=== PATIENT | male | born 1960 | race Caucasian/White ===

== ENCOUNTER 2020-10-11 09:12 | Day surgery (SDC) | payer OTHER ==
[~2020-10-11] VITALS: Ht 177.8 cm; Wt 70.2 kg
[2020-10-11 09:41] VITALS: BP 112/68
[2020-10-11] MEDS ORDERED: FENTANYL PF 100 MCG/2ML ONE (09:47)
[2020-10-11] MEDS ORDERED: NONE PER PT (09:47)
[2020-10-11] MEDS ORDERED: LACTATED RINGERS 1,000 ML IV SCH (10:00)
[2020-10-11] MEDS ORDERED: CHLORHEXIDINE 15 ML UDC PO ONE (10:00)
[2020-10-11] MEDS ORDERED: CHLORHEXIDINE 15 ML UDC ONE (10:08)
[2020-10-11] MEDS ORDERED: PROPOFOL 10 MG/ML, 20ML ONE (10:38)
[2020-10-11] MEDS ORDERED: GLYCOPYRROLATE 0.2MG/1ML, 5ML ONE (10:38)
[2020-10-11] MEDS ORDERED: CEFAZOLIN 1,000 MG ONE (10:38)
[2020-10-11] MEDS ORDERED: NEOSTIGMINE 1 MG/ML, 10ML ONE (10:38)
[2020-10-11] MEDS ORDERED: SUGAMMADEX 200 MG/2 ML IVPush ONE (10:38)
[2020-10-11] MEDS ORDERED: ROCURONIUM 10MG/ML,5ML ONE (10:38)
[2020-10-28] MEDS ORDERED: OXYC5SOL8 JT (16:29)
== END 2020-10-11 11:35 | disposition home or self-care (01) ==
LOC: OUT 09:12
PROVIDERS: ATTEND Internal Medicine Geriatric Medicine
DX: C15.3 Malignant neoplasm of upper third of esophagus (principal); K22.2 Esophageal obstruction; U07.1 COVID-19
CPT/HCPCS: 43259; J2704; J3010; J7120; U0003; U0005; J0690; J2710

== ENCOUNTER 2020-10-18 12:46 | Inpatient (IN) | payer OTHER ==
[~2020-10-18] VITALS: Ht 177.8 cm; Wt 67.5 kg
[~2020-10-18 12:46] MED LIST: NONE PER PT
[2020-10-18 13:50] LABS: MEAN CORPUSCULAR HEMOGLOBIN 31.6 pg (27.5-34.5); MEAN CORPUSCULAR HGB CONC 34.5 g/dL (33.2-36.2); MEAN PLATELET VOLUME 9.9 fL (7.4-10.4); PLATELET COUNT 116 x10^3/uL (130-400); RED BLOOD COUNT 4.69 x10^6/uL (4.38-5.82); RED CELL DISTRIBUTION WIDTH 13.5 % (9.4-14.8)
[2020-10-18 13:59] LABS: ALANINE AMINOTRANSFERASE 20 U/L (12-78); ALBUMIN 2.8 g/dL (3.4-5.0); ANION GAP 5 mmol/L (5-15); CALCIUM 8.4 mg/dL (8.5-10.1); CHLORIDE 98 mmol/L (98-107)
[2020-10-18 14:02] LABS: ALKALINE PHOSPHATASE 58 U/L (45-117); BILIRUBIN,TOTAL 0.7 mg/dL (0.2-1.0); CREATININE 0.86 mg/dL (0.7-1.3)
--- NOTE | 2020-10-18 14:11 | NUR ---
AT BEDSIDE FOR ED EVAL.
--- NOTE | 2020-10-18 14:15 | NUR ---
THIS IS A 60 YO M W/ C/O NAUSEA, COVID SX, PT HYPOXIC 87% RA. PT STATES THAT IS SCHEDULED FOR SURERY FOR FEEDING TUBE TOMORROW R/T ESOPHAGEAL TUMOR. PT FEBRILE, BORDERLINE HYPOTENSIVE. PT AWAKE AND ALERT, RESP EVEN AND UNLABORED, NADN. Addendum: 10/18/20 at 1557 by [email or web address] THIS IS A 60 YO M W/ C/O NAUSEA, COVID POSITIVE, PT HYPOXIC 87% RA. PT STATES THAT IS SCHEDULED FOR SURERY FOR FEEDING TUBE TOMORROW R/T ESOPHAGEAL TUMOR. PT FEBRILE, BORDERLINE HYPOTENSIVE. PT AWAKE AND ALERT, RESP EVEN AND UNLABORED, NADN.
[2020-10-18 14:19] LABS: BAND#(MANUAL) 0.25 x10^3/uL; BANDS%(MANUAL) 4 % (0-7); LYMPH#(MANUAL) 0.69 x10^3/uL (1-3.4); LYMPHS% (MANUAL) 11 % (22-44); MONOS#(MANUAL) 0.25 x10^3/uL (0.3-2.7); MONOS% (MANUAL) 4 % (2-9); SEGS% (MANUAL) 81 % (42-75)
[2020-10-18 14:20] LABS: <PLATELET ESTIMATE> DECREASED; <PLT MORPHOLOGY> NORMAL PLT MORPH
[2020-10-18 14:22] LABS: <RBC MORPHOLOGY> NORMAL
[2020-10-18] MEDS ORDERED: SODIUM CHLORIDE 0.9% 1,000ML IVBOLUS ONE ×2 (14:30→15:00)
[2020-10-18] MEDS ORDERED: SODIUM CHLORIDE FLUSH 10ML SYR IVF ONE (14:30)
[2020-10-18] MEDS ORDERED: CEFTRIAXONE 1,000 MG in DEXTROSE 5% 50 ML IVPB ONE (14:30)
[2020-10-18] MEDS ORDERED: AZITHROMYCIN 500 MG in SODIUM CHLORIDE 0.9% 250 ML IV ONE (14:30)
[2020-10-18] MEDS ORDERED: DEXAMETHASONE 4 MG/ML, 1ML IVPush ONE (14:30)
--- NOTE | 2020-10-18 14:30 | NUR ---
THIS RN UNABLE TO START PIV X2. TAMMY MOSES AT BEDSIDE FOR ATTEMPT.
[2020-10-18] MEDS ORDERED: DEXAMETHASONE 4 MG/ML, 5ML ONE (14:44)
[2020-10-18] MEDS ORDERED: ACETAMINOPHEN 500 MG TABLET ONE (14:45)
--- NOTE | 2020-10-18 14:50 | NUR ---
PT STATES UNABLE TO SWALLOW PILLS. TYLENOL HELD AT THIS TIME.
[2020-10-18] MEDS: ACETAMINOPHEN 500 MG TABLET PO ONE ×2 (14:53→15:42)
[2020-10-18] MEDS ORDERED: ACETAMINOPHEN 650 MG/20.3 ML UDC ONE (15:31)
--- NOTE | 2020-10-18 15:33 | NUR ---
PER DR.SULLIVAN BOURNE TO CHANGE TYLENOL 1000MG TABLET TO 1000MG LIQUID.
[2020-10-18] MEDS ORDERED: ONDANSETRON 2MG/ML, 2ML ONE (15:35)
--- NOTE | 2020-10-18 15:57 | NUR ---
PER LACTIC NOT INDICATED AT THIS TIME.
[2020-10-18] MEDS ORDERED: ONDANSETRON 2MG/ML, 2ML IVPush ONE (16:00)
--- NOTE | 2020-10-18 16:06 | NUR ---
FAMILY EDUCATED ON VISITOR POLICY.
[2020-10-18 17:24] VITALS: BP 98/55
[2020-10-18] MEDS ORDERED: DEXAMETHASONE 4 MG/ML, 1ML IVPush SCH (18:30)
[2020-10-18] MEDS ORDERED: REMDESIVIR 200 MG in SODIUM CHLORIDE 0.9% 250 ML IVPB ONE (18:30)
[2020-10-18] MEDS ORDERED: PHARMACY INSTRUCTION MC PRN (18:30)
[2020-10-18] MEDS ORDERED: ASCORBIC ACID 500 MG TABLET PO SCH (18:37)
[2020-10-18] MEDS ORDERED: ZINC SULFATE 220 MG CAPSULE PO SCH (18:38)
[2020-10-18] MEDS ORDERED: SODIUM CHLORIDE 0.9% 1,000 ML IV SCH (19:00)
[2020-10-18 20:06] VITALS: BP 99/52
[2020-10-18 22:46] LABS: MICROSCOPIC AUTO
[2020-10-19 00:09] VITALS: BP 87/65
[2020-10-19] MEDS: CEFTRIAXONE 1,000 MG in DEXTROSE 5% 50 ML IVPB SCH ×2 (03:12→16:09)
[2020-10-19 07:38] VITALS: BP 106/69
[2020-10-19 07:48] LABS: BASOPHILS % (AUTO) 0 % (0-1); EOSINOPHILS % (AUTO) 0 % (1-7); LYMPHOCYTES % (AUTO) 19 % (22-44); MEAN CORPUSCULAR HEMOGLOBIN 31.2 pg (27.5-34.5); MEAN PLATELET VOLUME 9.5 fL (7.4-10.4); MONOCYTES % (AUTO) 7 % (2-9); NEUTROPHILS % (AUTO) 74 % (42-75); PLATELET COUNT 124 x10^3/uL (130-400); RED BLOOD COUNT 4.24 x10^6/uL (4.38-5.82); RED CELL DISTRIBUTION WIDTH 13.7 % (9.4-14.8)
[2020-10-19 07:52] LABS: D-DIMER 0.49 ug/mlFEU (0.00-0.52)
[2020-10-19 07:56] LABS: ALBUMIN 2.3 g/dL (3.4-5.0); CALCIUM 8.1 mg/dL (8.5-10.1); CHLORIDE 108 mmol/L (98-107)
[2020-10-19 08:01] LABS: ALANINE AMINOTRANSFERASE 17 U/L (12-78); ALKALINE PHOSPHATASE 48 U/L (45-117); ANION GAP 7 mmol/L (5-15); BILIRUBIN,TOTAL 0.4 mg/dL (0.2-1.0); CREATININE 0.51 mg/dL (0.7-1.3); TOTAL PROTEIN 5.8 g/dL (6.4-8.2)
[2020-10-19] MEDS ORDERED: THIAMINE 100MG TABLET PO SCH (09:00)
[2020-10-19] MEDS ORDERED: CHOLECALCIFEROL 5,000u TAB PO SCH (09:00)
[2020-10-19] MEDS: DEXAMETHASONE 4 MG/ML, 1ML IVPush SCH (09:54)
[2020-10-19 13:19] VITALS: BP 101/60
[2020-10-19] MEDS ORDERED: ENOXAPARIN 40 MG/0.4 ML SQ SCH (13:30)
[2020-10-19] MEDS ORDERED: AZITHROMYCIN 500 MG in SODIUM CHLORIDE 0.9% 250 ML IV SCH (18:00)
[2020-10-19] MEDS ORDERED: REMDESIVIR 100 MG in SODIUM CHLORIDE 0.9% 250 ML IVPB SCH (18:30)
[2020-10-19 19:46] VITALS: BP 109/66
[2020-10-19] MEDS ORDERED: DIPHENHYDRAMINE 25 MG CAPSULE PO ONE (23:00)
[2020-10-19] MEDS ORDERED: ACETAMINOPHEN 325 MG TABLET PO ONE (23:00)
[2020-10-20 01:21] VITALS: BP 98/64
[2020-10-20] MEDS: CEFTRIAXONE 1,000 MG in DEXTROSE 5% 50 ML IVPB SCH (03:33)
[2020-10-20 06:31] LABS: CHLORIDE 110 mmol/L (98-107)
[2020-10-20 06:39] LABS: ALANINE AMINOTRANSFERASE 27 U/L (12-78); ALBUMIN 2.4 g/dL (3.4-5.0); ALKALINE PHOSPHATASE 48 U/L (45-117); ANION GAP 6 mmol/L (5-15); BILIRUBIN,TOTAL 0.4 mg/dL (0.2-1.0); CALCIUM 8.3 mg/dL (8.5-10.1); CREATININE 0.51 mg/dL (0.7-1.3); TOTAL PROTEIN 5.7 g/dL (6.4-8.2)
[2020-10-20 07:54] VITALS: BP 109/58
[2020-10-20] MEDS: DEXAMETHASONE 4 MG/ML, 1ML IVPush SCH (09:53)
[2020-10-20] MEDS ORDERED: CEFD300C37 PO (10:06)
[2020-10-20] MEDS ORDERED: AZIT250T PO (10:06)
== END 2020-10-20 11:53 | disposition home or self-care (01) | DRG 871 ==
LOC: ED 14:32 → 3N 14:49 → SUATTDRO 16:06
PROVIDERS: ADMIT Internal Medicine; ATTEND Family Medicine
PROC: XW033E5 Introduction of Remdesivir Anti-infective into Peripheral Vein, Percutaneous Approach, New Technology Group 5 (ICD-10-PCS; principal; 2020-10-18)
DX: A41.89 Other specified sepsis (principal); U07.1 COVID-19; J12.82 Pneumonia due to coronavirus disease 2019; J96.01 Acute respiratory failure with hypoxia; C15.9 Malignant neoplasm of esophagus, unspecified; E87.1 Hypo-osmolality and hyponatremia; D69.6 Thrombocytopenia, unspecified; E88.09 Other disorders of plasma-protein metabolism, not elsewhere classified; I10 Essential (primary) hypertension; K22.2 Esophageal obstruction; Z83.3 Family history of diabetes mellitus; Z85.01 Personal history of malignant neoplasm of esophagus; Z79.899 Other long term (current) drug therapy
CPT/HCPCS: 36415; 71045; 80053; 81001; 83690; 85025; 85379; 85384; 86140; 87040; 93005; 96365; 96368; 96375; G0378; J0456; J0696; J1100; J1650; J2405; J7030; J7050; Q0163

== ENCOUNTER 2020-10-27 07:51 | Outpatient (CLI) | payer OTHER ==
[~2020-10-27 07:51] MED LIST changes: +AZIT250T PO; +CEFD300C37 PO
[2020-10-28] MEDS ORDERED: IBUP100O26 JT (16:29)
[2020-10-28] MEDS ORDERED: ACET650S21 JT (16:29)
[2020-10-28] MEDS ORDERED: OXYC5SOL8 JT ×3 (16:29→20:02)
== END 2020-10-27 23:59 | disposition home or self-care (01) ==
LOC: ROC 07:51
PROVIDERS: ATTEND Radiology Radiation Oncology
DX: C15.5 Malignant neoplasm of lower third of esophagus (principal); K22.2 Esophageal obstruction; I10 Essential (primary) hypertension; E87.1 Hypo-osmolality and hyponatremia; Z79.899 Other long term (current) drug therapy
CPT/HCPCS: 99214; G0463

== ENCOUNTER 2020-10-28 12:55 | Day surgery (SDC) | payer OTHER ==
[~2020-10-28] VITALS: Ht 175.3 cm; Wt 69.4 kg
[2020-10-28] MEDS ORDERED: CHLORHEXIDINE 15 ML UDC ONE (13:29)
[2020-10-28 13:30] VITALS: BP 121/78
[2020-10-28] MEDS ORDERED: LACTATED RINGERS 1,000 ML IV SCH (14:00)
[2020-10-28] MEDS ORDERED: CHLORHEXIDINE 15 ML UDC PO ONE (14:00)
[2020-10-28] MEDS ORDERED: EPINEPHRINE 1 MG/ML, 1ML ONE (14:35)
[2020-10-28] MEDS ORDERED: BUPIVACAINE/PF 0.5% ONE (14:35)
[2020-10-28] MEDS ORDERED: MIDAZOLAM 1 MG/ML, 2ML ONE (14:52)
[2020-10-28] MEDS ORDERED: HEPARIN 1,000 UNITS/ML, 10ML ONE (14:53)
[2020-10-28] MEDS ORDERED: FENTANYL PF 250 MCG/5ML ONE (14:53)
[2020-10-28] MEDS ORDERED: IBUP100O26 JT (16:29)
[2020-10-28] MEDS ORDERED: OXYC5SOL8 JT ×3 (16:29→20:02)
[2020-10-28] MEDS ORDERED: ACET650S21 JT (16:29)
[2020-10-28] MEDS ORDERED: HYDROmorphone 1 MG/ML, 1ML INJ IV PRN (16:30)
[2020-10-28] MEDS ORDERED: KETOROLAC 30 MG/1 ML IV PRN (16:30)
[2020-10-28] MEDS ORDERED: hydrALAzine 20 MG/ML, 1ML IV PRN (16:30)
[2020-10-28] MEDS ORDERED: METOCLOPRAMIDE 5 MG/ML, 2ML IV PRN (16:30)
[2020-10-28] MEDS ORDERED: OXYcodone 5 MG/5 ML ORAL.SOL UDC PO PRN (16:30)
[2020-10-28] MEDS ORDERED: PROMETHAZINE 25 MG/ML, 1ML IV PRN (16:30)
[2020-10-28] MEDS ORDERED: FENTANYL PF 100 MCG/2ML IV PRN (16:30)
[2020-10-28] MEDS ORDERED: LABETALOL 5MG/ML, 20ML IV PRN (16:30)
[2020-10-28] MEDS ORDERED: DIAZEPAM 5 MG/ML, 2ML IV PRN ×2 (16:30)
[2020-10-28] MEDS ORDERED: ONDANSETRON 2MG/ML, 2ML IVPush PRN (16:30)
[2020-10-28] MEDS ORDERED: ALBUTEROL SULFATE 2.5 MG/3 ML NPPB PRN (16:30)
[2020-10-28] MEDS ORDERED: MEPERIDINE/PF 25MG/0.5ML IVPush PRN (16:30)
[2020-10-28] MEDS ORDERED: OXYcodone 5 MG/5 ML ORAL.SOL UDC ONE (17:34)
== END 2020-10-28 18:15 | disposition home or self-care (01) ==
LOC: OUT 12:55
PROVIDERS: ATTEND Surgery
DX: C15.5 Malignant neoplasm of lower third of esophagus (principal); K21.9 Gastro-esophageal reflux disease without esophagitis; F12.90 Cannabis use, unspecified, uncomplicated; Z79.899 Other long term (current) drug therapy; Z83.3 Family history of diabetes mellitus; Z80.8 Family history of malignant neoplasm of other organs or systems
CPT/HCPCS: 36561; 44186; 71045; 77001; B4087; C1788; J0171; J1644; J2250; J3010; J7120; 76000

== ENCOUNTER 2020-11-02 14:01 | Outpatient (CLI) | payer OTHER ==
[~2020-11-02 14:01] MED LIST changes: +ACET650S21 JT; +IBUP100O26 JT; +OXYC5SOL8 JT
== END 2020-11-02 23:59 | disposition home or self-care (01) ==
LOC: PETCFH 14:01
PROVIDERS: ATTEND Radiology Radiation Oncology
DX: C15.5 Malignant neoplasm of lower third of esophagus (principal); K22.8 Other specified diseases of esophagus
CPT/HCPCS: 78815; A9552